=== PATIENT | male | born 1995 | race Native Hawaiian/Other Pacific Islander ===

== ENCOUNTER → 2017-02-09 | Outpatient (CLI) | payer OTHER ==
[~2017-02-09] VITALS: Ht 175.3 cm; Wt 72.6 kg
[~2017-02-09] MED LIST: HEPARIN 1,1000 UNIT/ SUBQ; LEXAPRO 10 MG T10 M1 PO; LOPRESSOR50 PO; SEROQUEL 25 MG25 M1 PO
[2017-02-09 09:26] VITALS: BP 98/65
== END | disposition home or self-care (01) ==
LOC: SPEC 08:33
DX: D73.3 Abscess of spleen (principal)

== ENCOUNTER → 2017-04-04 | Outpatient (CLI) | payer OTHER ==
[2017-04-04 09:20] VITALS: BP 126/73
== END | disposition home or self-care (01) ==
LOC: SPEC 07:10
DX: Z48.03 Encounter for change or removal of drains (principal); T81.89XA Other complications of procedures, not elsewhere classified, initial encounter; F32.89 Other specified depressive episodes; Z98.0 Intestinal bypass and anastomosis status; Z79.899 Other long term (current) drug therapy; Y83.8 Other surgical procedures as the cause of abnormal reaction of the patient, or of later complication, without mention of misadventure at the time of the procedure